=== PATIENT | female | born 1945 | race Caucasian/White ===

== ENCOUNTER 2018-05-02 14:19 | Inpatient (IN) | payer MEDICARE, OTHER ==
[~2018-05-02] VITALS: Ht 167.6 cm; Wt 80.3 kg
[2018-05-02] MEDS ORDERED: ACETAMINOPHEN 325 MG TABLET PO PRN (17:45)
[2018-05-02] MEDS: HYDROCODONE/ACETAMINOPHEN 5-325 MG TABLET PO PRN (19:18)
[2018-05-02] MEDS ORDERED: LISINOPRIL 20 MG TABLET PO SCH (21:00)
[2018-05-02] MEDS: SENNA 187 MG TABLET PO SCH (21:30)
[2018-05-02] MEDS: DOCUSATE SODIUM 250 MG CAPSULE PO SCH (21:30)
[2018-05-02] MEDS: ATORVASTATIN CALCIUM 20 MG TABLET PO SCH (21:30)
[2018-05-02] MEDS: ASPIRIN 81 MG CHEWABLE TABLET PO SCH (21:30)
[2018-05-02] MEDS: TEMAZEPAM 15 MG CAPSULE PO SCH (21:31)
[2018-05-02] MEDS: GABAPENTIN 300 MG CAPSULE PO SCH (21:31)
[2018-05-02] MEDS: OxyCODONE HCL/ACETAMINOPHEN 5-325 MG TABLET PO PRN (21:58)
[2018-05-02 22:32] VITALS: BP 146/86
[2018-05-02 23:48] LABS: APPEARANCE,URINE CLEAR (CLEAR); BILIRUBIN,URINE NEGATIVE (NEGATIVE); GLUCOSE, URINE (UA) NEGATIVE (NEGATIVE); KETONES,URINE NEGATIVE (NEGATIVE); LEUKOCYTE ESTERASE ,URINE NEGATIVE (NEGATIVE); NITRATE,URINE NEGATIVE (NEGATIVE); OCCULT BLOOD,URINE NEGATIVE (NEGATIVE); PH,URINE 7.5 (5.0-8.0); PROTEIN,URINE NEGATIVE (NEGATIVE); UROBILINOGEN,URINE 0.2 mg/dL (<=1.0)
[2018-05-03 00:23] LABS: BACTERIA,URINE Rare /HPF (None Seen); RBC,URINE 0-2 /HPF (0-2); SQUAMOUS EPITHELIAL CELL,UR Few /LPF (None Seen); WBC,URINE 0-2 /HPF (0-5)
[2018-05-03 03:08] VITALS: BP 141/83
[2018-05-03] MEDS: OxyCODONE HCL/ACETAMINOPHEN 5-325 MG TABLET PO PRN ×4 (03:08→17:15)
[2018-05-03] MEDS: DOCUSATE SODIUM 283 MG/5 ML MINI-ENEMA PR PRN (05:39)
[2018-05-03 07:03] LABS: BASOPHILS % (AUTO) 0.9 % (0.0-2.0); EOSINOPHILS % (AUTO) 3.2 % (1.0-6.0); HEMATOCRIT 32.6 % (36-46); HEMOGLOBIN 11.4 g/dL (12.0-16.0); LYMPHOCYTES # (AUTO) 1.8 K/uL (1.0-4.8); LYMPHOCYTES % (AUTO) 24.8 % (22.0-44.0); MEAN CORPUSCULAR HEMOGLOBIN 33.7 pg (26.0-34.0); MEAN CORPUSCULAR HGB CONC 34.9 G/dL (31.0-37.0); MEAN CORPUSCULAR VOLUME 97 fL (80-100); MONOCYTES # (AUTO) 0.7 K/uL (0.1-1.0); MONOCYTES % (AUTO) 9.1 % (2.0-9.0); NEUTROPHILS # (AUTO) 4.4 K/uL (1.8-7.7); PLATELET COUNT (AUTO) 225 K/uL (150-450); RED BLOOD CELL COUNT(AUTO) 3.38 MIL/uL (4.00-5.20); RED CELL DISTRIBUTION WIDTH 13.2 % (11.5-14.5)
[2018-05-03 07:39] LABS: ALBUMIN 3.1 g/dL (3.4-5.0); BILIRUBIN,TOTAL 0.6 mg/dL (0.1-1.0); CALCIUM, TOTAL 8.9 mg/dL (8.8-10.5); POTASSIUM 4.2 mmol/L (3.5-5.1); TOTAL PROTEIN, SERUM 6.4 g/dL (6.4-8.2)
[2018-05-03 08:10] VITALS: BP 129/81
[2018-05-03] MEDS: METOPROLOL SUCCINATE 50 MG ER TABLET PO SCH (08:13)
[2018-05-03] MEDS: LISINOPRIL 20 MG TABLET PO SCH (08:13)
[2018-05-03] MEDS: BuPROPion HCL XL 150 MG ER TABLET PO SCH (08:13)
[2018-05-03] MEDS: GLUCOSAMINE HCL/CHONDROITIN 500-400 MG TABLET PO SCH (08:14)
[2018-05-03] MEDS: BREXPIPRAZOLE 1 MG TABLET PO SCH (08:14)
[2018-05-03] MEDS: CLOPIDOGREL BISULFATE 75 MG TABLET PO SCH (08:14)
[2018-05-03] MEDS: DIAZEPAM 5 MG TABLET PO SCH (08:14)
[2018-05-03] MEDS: DOCUSATE SODIUM 250 MG CAPSULE PO SCH ×2 (08:14→20:52)
[2018-05-03] MEDS: DULoxetine HCL 20 MG CAPSULE PO SCH (08:14)
[2018-05-03] MEDS: HYDROCHLOROTHIAZIDE 25 MG TABLET PO SCH (08:14)
[2018-05-03] MEDS: GABAPENTIN 300 MG CAPSULE PO SCH ×3 (08:14→20:52)
[2018-05-03] MEDS: ASPIRIN 81 MG CHEWABLE TABLET PO SCH ×2 (08:14→20:53)
[2018-05-03] MEDS: CALCIUM CARBONATE 648 MG TABLET PO SCH (08:14)
[2018-05-03] MEDS: CHOLECALCIFEROL (VIT D3) 5,000 UNITS CAPSULE PO SCH (08:14)
[2018-05-03] MEDS: MULTIVITAMINS WITH MINERALS, THERAPEUTIC TABLET PO SCH (08:14)
[2018-05-03] MEDS ORDERED: OMEGA-3/DHA/EPA/FISH OIL 500 MG CAPSULE PO SCH (09:00)
[2018-05-03] MEDS: LUBIPROSTONE 24 MCG CAPSULE PO SCH ×2 (14:20→20:53)
[2018-05-03 15:37] VITALS: BP 123/85
[2018-05-03] MEDS: SENNA 187 MG TABLET PO SCH (20:52)
[2018-05-03] MEDS: ATORVASTATIN CALCIUM 20 MG TABLET PO SCH (20:52)
[2018-05-03] MEDS: TEMAZEPAM 15 MG CAPSULE PO SCH (20:52)
[2018-05-03] MEDS: TRIMETHOPRIM 100 MG TABLET PO SCH (20:53)
[2018-05-04 02:32] VITALS: BP 127/88
[2018-05-04] MEDS: OxyCODONE HCL/ACETAMINOPHEN 5-325 MG TABLET PO PRN ×4 (02:32→20:22)
[2018-05-04 07:22] VITALS: BP 127/79
[2018-05-04] MEDS: LUBIPROSTONE 24 MCG CAPSULE PO SCH ×2 (08:13→20:19)
[2018-05-04] MEDS: GLUCOSAMINE HCL/CHONDROITIN 500-400 MG TABLET PO SCH (08:14)
[2018-05-04] MEDS: CALCIUM CARBONATE 648 MG TABLET PO SCH ×2 (08:14→08:22)
[2018-05-04] MEDS: BREXPIPRAZOLE 1 MG TABLET PO SCH (08:14)
[2018-05-04] MEDS: CHOLECALCIFEROL (VIT D3) 5,000 UNITS CAPSULE PO SCH (08:14)
[2018-05-04] MEDS: ASPIRIN 81 MG CHEWABLE TABLET PO SCH ×2 (08:14→20:20)
[2018-05-04] MEDS: LISINOPRIL 20 MG TABLET PO SCH (08:14)
[2018-05-04] MEDS: DOCUSATE SODIUM 250 MG CAPSULE PO SCH ×2 (08:15→20:28)
[2018-05-04] MEDS: MULTIVITAMINS WITH MINERALS, THERAPEUTIC TABLET PO SCH (08:15)
[2018-05-04] MEDS: BuPROPion HCL XL 150 MG ER TABLET PO SCH (08:15)
[2018-05-04] MEDS: GABAPENTIN 300 MG CAPSULE PO SCH ×3 (08:15→20:20)
[2018-05-04] MEDS: DIAZEPAM 5 MG TABLET PO SCH (08:15)
[2018-05-04] MEDS: HYDROCHLOROTHIAZIDE 25 MG TABLET PO SCH (08:15)
[2018-05-04] MEDS: METOPROLOL SUCCINATE 50 MG ER TABLET PO SCH (08:15)
[2018-05-04] MEDS: CLOPIDOGREL BISULFATE 75 MG TABLET PO SCH (08:15)
[2018-05-04] MEDS: DULoxetine HCL 20 MG CAPSULE PO SCH (08:16)
[2018-05-04] MEDS ORDERED: SCOPOLAMINE HYDROBROMIDE 1.5 MG PATCH TD SCH (09:00)
[2018-05-04 15:26] VITALS: BP 117/78
[2018-05-04] MEDS: HYDROCODONE/ACETAMINOPHEN 5-325 MG TABLET PO PRN ×2 (16:29→22:30)
[2018-05-04] MEDS: TRIMETHOPRIM 100 MG TABLET PO SCH (20:19)
[2018-05-04] MEDS: SENNA 187 MG TABLET PO SCH (20:20)
[2018-05-04] MEDS: TEMAZEPAM 15 MG CAPSULE PO SCH (20:20)
[2018-05-04] MEDS: ATORVASTATIN CALCIUM 20 MG TABLET PO SCH (20:20)
[2018-05-05 01:38] VITALS: BP 111/78
[2018-05-05] MEDS: OxyCODONE HCL/ACETAMINOPHEN 5-325 MG TABLET PO PRN ×5 (02:01→22:26)
[2018-05-05 08:01] VITALS: BP 130/78
[2018-05-05] MEDS: DIAZEPAM 5 MG TABLET PO SCH (08:57)
[2018-05-05] MEDS: CLOPIDOGREL BISULFATE 75 MG TABLET PO SCH (08:57)
[2018-05-05] MEDS: ASPIRIN 81 MG CHEWABLE TABLET PO SCH ×2 (08:57→20:51)
[2018-05-05] MEDS: MULTIVITAMINS WITH MINERALS, THERAPEUTIC TABLET PO SCH (08:57)
[2018-05-05] MEDS: GABAPENTIN 300 MG CAPSULE PO SCH ×3 (08:57→20:51)
[2018-05-05] MEDS: BuPROPion HCL XL 150 MG ER TABLET PO SCH (08:57)
[2018-05-05] MEDS: CHOLECALCIFEROL (VIT D3) 5,000 UNITS CAPSULE PO SCH (08:57)
[2018-05-05] MEDS: LUBIPROSTONE 24 MCG CAPSULE PO SCH ×2 (08:57→20:51)
[2018-05-05] MEDS: GLUCOSAMINE HCL/CHONDROITIN 500-400 MG TABLET PO SCH (08:57)
[2018-05-05] MEDS: BREXPIPRAZOLE 1 MG TABLET PO SCH (08:57)
[2018-05-05] MEDS: METOPROLOL SUCCINATE 50 MG ER TABLET PO SCH (08:57)
[2018-05-05] MEDS: DOCUSATE SODIUM 250 MG CAPSULE PO SCH ×2 (08:57→20:51)
[2018-05-05] MEDS: DULoxetine HCL 20 MG CAPSULE PO SCH (08:58)
[2018-05-05] MEDS: HYDROCHLOROTHIAZIDE 25 MG TABLET PO SCH (08:58)
[2018-05-05] MEDS: LISINOPRIL 20 MG TABLET PO SCH (08:58)
[2018-05-05] MEDS: CALCIUM CARBONATE 648 MG TABLET PO SCH (08:58)
[2018-05-05 16:01] VITALS: BP 130/74
[2018-05-05] MEDS: ATORVASTATIN CALCIUM 20 MG TABLET PO SCH (20:51)
[2018-05-05] MEDS: TRIMETHOPRIM 100 MG TABLET PO SCH (20:52)
[2018-05-05] MEDS: SENNA 187 MG TABLET PO SCH (20:52)
[2018-05-05] MEDS: TEMAZEPAM 15 MG CAPSULE PO SCH (20:52)
[2018-05-06 00:54] VITALS: BP 142/76
[2018-05-06] MEDS: HYDROCODONE/ACETAMINOPHEN 5-325 MG TABLET PO PRN ×2 (02:27→09:11)
[2018-05-06] MEDS: OxyCODONE HCL/ACETAMINOPHEN 5-325 MG TABLET PO PRN ×3 (06:37→23:56)
[2018-05-06 08:25] VITALS: BP 134/86
[2018-05-06] MEDS: GABAPENTIN 300 MG CAPSULE PO SCH ×3 (09:09→20:32)
[2018-05-06] MEDS: BREXPIPRAZOLE 1 MG TABLET PO SCH (09:09)
[2018-05-06] MEDS: GLUCOSAMINE HCL/CHONDROITIN 500-400 MG TABLET PO SCH (09:09)
[2018-05-06] MEDS: CHOLECALCIFEROL (VIT D3) 5,000 UNITS CAPSULE PO SCH (09:09)
[2018-05-06] MEDS: CALCIUM CARBONATE 648 MG TABLET PO SCH (09:09)
[2018-05-06] MEDS: LUBIPROSTONE 24 MCG CAPSULE PO SCH ×2 (09:09→20:32)
[2018-05-06] MEDS: HYDROCHLOROTHIAZIDE 25 MG TABLET PO SCH (09:10)
[2018-05-06] MEDS: CLOPIDOGREL BISULFATE 75 MG TABLET PO SCH (09:10)
[2018-05-06] MEDS: DULoxetine HCL 20 MG CAPSULE PO SCH (09:10)
[2018-05-06] MEDS: DOCUSATE SODIUM 250 MG CAPSULE PO SCH ×2 (09:10→20:32)
[2018-05-06] MEDS: ASPIRIN 81 MG CHEWABLE TABLET PO SCH ×2 (09:10→20:32)
[2018-05-06] MEDS: LISINOPRIL 20 MG TABLET PO SCH (09:10)
[2018-05-06] MEDS: METOPROLOL SUCCINATE 50 MG ER TABLET PO SCH (09:10)
[2018-05-06] MEDS: MULTIVITAMINS WITH MINERALS, THERAPEUTIC TABLET PO SCH (09:10)
[2018-05-06] MEDS: DIAZEPAM 5 MG TABLET PO SCH (09:10)
[2018-05-06] MEDS: BuPROPion HCL XL 150 MG ER TABLET PO SCH (09:10)
[2018-05-06] MEDS ORDERED: DiphenhydrAMINE HCL 25 MG CAPSULE PO PRN (12:30)
[2018-05-06] MEDS: ONDANSETRON HCL 4 MG TABLET PO PRN (13:54)
[2018-05-06 15:58] VITALS: BP 141/77
[2018-05-06 20:31] VITALS: BP 121/76
[2018-05-06] MEDS: TEMAZEPAM 15 MG CAPSULE PO SCH (20:32)
[2018-05-06] MEDS: SENNA 187 MG TABLET PO SCH (20:32)
[2018-05-06] MEDS: ATORVASTATIN CALCIUM 20 MG TABLET PO SCH (20:32)
[2018-05-06] MEDS: TRIMETHOPRIM 100 MG TABLET PO SCH (20:32)
[2018-05-06] MEDS ORDERED: METO-558 PO (22:29)
[2018-05-06] MEDS ORDERED: CLOP75 PO (22:32)
[2018-05-06] MEDS ORDERED: BREX1TAB PO (22:32)
[2018-05-06] MEDS ORDERED: PRAS25CA9 PO (22:39)
[2018-05-06] MEDS ORDERED: ATOR20TA86 PO (22:39)
[2018-05-06] MEDS ORDERED: CALC-1038 PO (22:39)
[2018-05-06] MEDS ORDERED: DULO20CA30 PO (22:39)
[2018-05-06] MEDS ORDERED: DIAZ2TAB PO (22:39)
[2018-05-06] MEDS ORDERED: BUPR-93 PO (22:39)
[2018-05-06] MEDS ORDERED: OMEG-112 PO (22:51)
[2018-05-06] MEDS ORDERED: TRIM100 PO (22:51)
[2018-05-06] MEDS ORDERED: ASPI-1182 PO (22:51)
[2018-05-06] MEDS ORDERED: TEMA15CA PO (22:51)
[2018-05-06] MEDS ORDERED: GABA-531 PO (22:51)
[2018-05-06] MEDS ORDERED: LISI-662 PO (22:51)
[2018-05-06] MEDS ORDERED: DIAZ5 PO (22:51)
[2018-05-06] MEDS ORDERED: CHOL50004 PO (22:51)
[2018-05-06] MEDS ORDERED: KRIL500C PO (22:51)
[2018-05-06 23:56] VITALS: BP 117/76
[2018-05-07] MEDS: HYDROCODONE/ACETAMINOPHEN 5-325 MG TABLET PO PRN ×2 (03:26→11:47)
[2018-05-07 07:47] VITALS: BP 125/70
[2018-05-07] MEDS: OxyCODONE HCL/ACETAMINOPHEN 5-325 MG TABLET PO PRN ×3 (09:07→22:32)
[2018-05-07] MEDS: BREXPIPRAZOLE 1 MG TABLET PO SCH (09:36)
[2018-05-07] MEDS: CALCIUM CARBONATE 648 MG TABLET PO SCH (09:37)
[2018-05-07] MEDS: ASPIRIN 81 MG CHEWABLE TABLET PO SCH ×2 (09:37→21:07)
[2018-05-07] MEDS: GLUCOSAMINE HCL/CHONDROITIN 500-400 MG TABLET PO SCH (09:37)
[2018-05-07] MEDS: CLOPIDOGREL BISULFATE 75 MG TABLET PO SCH (09:37)
[2018-05-07] MEDS: DULoxetine HCL 20 MG CAPSULE PO SCH (09:37)
[2018-05-07] MEDS: LUBIPROSTONE 24 MCG CAPSULE PO SCH ×2 (09:38→21:08)
[2018-05-07] MEDS: GABAPENTIN 300 MG CAPSULE PO SCH ×3 (09:38→21:07)
[2018-05-07] MEDS: BuPROPion HCL XL 150 MG ER TABLET PO SCH (09:38)
[2018-05-07] MEDS: DOCUSATE SODIUM 250 MG CAPSULE PO SCH ×2 (09:38→21:07)
[2018-05-07] MEDS: METOPROLOL SUCCINATE 50 MG ER TABLET PO SCH (09:39)
[2018-05-07] MEDS: DIAZEPAM 5 MG TABLET PO SCH (09:39)
[2018-05-07] MEDS: LISINOPRIL 20 MG TABLET PO SCH (09:39)
[2018-05-07] MEDS: MULTIVITAMINS WITH MINERALS, THERAPEUTIC TABLET PO SCH (09:39)
[2018-05-07] MEDS: CHOLECALCIFEROL (VIT D3) 5,000 UNITS CAPSULE PO SCH (09:39)
[2018-05-07] MEDS: HYDROCHLOROTHIAZIDE 25 MG TABLET PO SCH (09:40)
[2018-05-07 15:09] VITALS: BP 119/81
[2018-05-07] MEDS: ATORVASTATIN CALCIUM 20 MG TABLET PO SCH (21:07)
[2018-05-07] MEDS: SENNA 187 MG TABLET PO SCH (21:07)
[2018-05-07] MEDS: TEMAZEPAM 15 MG CAPSULE PO SCH (21:07)
[2018-05-07] MEDS: TRIMETHOPRIM 100 MG TABLET PO SCH (21:08)
[2018-05-07] MEDS: ONDANSETRON HCL 4 MG TABLET PO PRN (23:58)
[2018-05-08 00:05] VITALS: BP 130/85
[2018-05-08] MEDS: HYDROCODONE/ACETAMINOPHEN 5-325 MG TABLET PO PRN ×3 (02:01→10:45)
[2018-05-08 07:20] VITALS: BP 138/77
[2018-05-08] MEDS: DOCUSATE SODIUM 250 MG CAPSULE PO SCH ×2 (08:42→20:16)
[2018-05-08] MEDS: DIAZEPAM 5 MG TABLET PO SCH (08:42)
[2018-05-08] MEDS: BuPROPion HCL XL 150 MG ER TABLET PO SCH (08:42)
[2018-05-08] MEDS: MULTIVITAMINS WITH MINERALS, THERAPEUTIC TABLET PO SCH (08:42)
[2018-05-08] MEDS: CLOPIDOGREL BISULFATE 75 MG TABLET PO SCH (08:42)
[2018-05-08] MEDS: OxyCODONE HCL/ACETAMINOPHEN 5-325 MG TABLET PO PRN ×2 (08:42→15:21)
[2018-05-08] MEDS: ASPIRIN 81 MG CHEWABLE TABLET PO SCH ×2 (08:42→20:16)
[2018-05-08] MEDS: GABAPENTIN 300 MG CAPSULE PO SCH ×3 (08:43→20:15)
[2018-05-08] MEDS: METOPROLOL SUCCINATE 50 MG ER TABLET PO SCH (08:43)
[2018-05-08] MEDS: LUBIPROSTONE 24 MCG CAPSULE PO SCH ×2 (08:44→20:15)
[2018-05-08] MEDS: CALCIUM CARBONATE 648 MG TABLET PO SCH (08:44)
[2018-05-08] MEDS: DULoxetine HCL 20 MG CAPSULE PO SCH (08:44)
[2018-05-08] MEDS: GLUCOSAMINE HCL/CHONDROITIN 500-400 MG TABLET PO SCH (08:44)
[2018-05-08] MEDS: BREXPIPRAZOLE 1 MG TABLET PO SCH (08:44)
[2018-05-08] MEDS: LISINOPRIL 20 MG TABLET PO SCH (08:45)
[2018-05-08] MEDS: HYDROCHLOROTHIAZIDE 25 MG TABLET PO SCH (08:45)
[2018-05-08] MEDS: CHOLECALCIFEROL (VIT D3) 5,000 UNITS CAPSULE PO SCH (08:45)
[2018-05-08] MEDS ORDERED: OxyCODONE HCL 20 MG ER TABLET PO ONE (13:00)
[2018-05-08 13:09] LABS: APPEARANCE,URINE CLOUDY (CLEAR); BILIRUBIN,URINE NEGATIVE (NEGATIVE); GLUCOSE, URINE (UA) NEGATIVE (NEGATIVE); KETONES,URINE NEGATIVE (NEGATIVE); LEUKOCYTE ESTERASE ,URINE LARGE (NEGATIVE); NITRATE,URINE POSITIVE (NEGATIVE); OCCULT BLOOD,URINE SMALL (NEGATIVE); PROTEIN,URINE NEGATIVE (NEGATIVE)
[2018-05-08 13:19] LABS: BACTERIA,URINE Many /HPF (None Seen); WBC,URINE 51-100 /HPF (0-5)
[2018-05-08 13:22] LABS: RBC,URINE 0-2 /HPF (0-2); SQUAMOUS EPITHELIAL CELL,UR Few /LPF (None Seen)
[2018-05-08 15:21] VITALS: BP 109/74
[2018-05-08] MEDS: CIPROFLOXACIN HCL 250 MG TABLET PO SCH ×2 (15:21→20:15)
[2018-05-08 15:51] VITALS: BP 109/74
[2018-05-08] MEDS: SENNA 187 MG TABLET PO SCH (20:15)
[2018-05-08] MEDS: TRIMETHOPRIM 100 MG TABLET PO SCH (20:15)
[2018-05-08] MEDS: OxyCODONE HCL 20 MG ER TABLET PO SCH (20:15)
[2018-05-08] MEDS: ATORVASTATIN CALCIUM 20 MG TABLET PO SCH (20:15)
[2018-05-08] MEDS: TEMAZEPAM 15 MG CAPSULE PO SCH (20:16)
[2018-05-08] MEDS: ONDANSETRON HCL 4 MG TABLET PO PRN (21:26)
[2018-05-09 00:30] VITALS: BP 126/76
[2018-05-09] MEDS: OxyCODONE HCL/ACETAMINOPHEN 5-325 MG TABLET PO PRN ×2 (02:41→22:33)
[2018-05-09] MEDS: CIPROFLOXACIN HCL 250 MG TABLET PO SCH ×2 (07:55→20:28)
[2018-05-09] MEDS: MULTIVITAMINS WITH MINERALS, THERAPEUTIC TABLET PO SCH (07:55)
[2018-05-09] MEDS: CLOPIDOGREL BISULFATE 75 MG TABLET PO SCH (07:56)
[2018-05-09] MEDS: CALCIUM CARBONATE 648 MG TABLET PO SCH (07:56)
[2018-05-09] MEDS: HYDROCHLOROTHIAZIDE 25 MG TABLET PO SCH (07:56)
[2018-05-09] MEDS: LISINOPRIL 20 MG TABLET PO SCH (07:56)
[2018-05-09] MEDS: BREXPIPRAZOLE 1 MG TABLET PO SCH (07:56)
[2018-05-09] MEDS: LUBIPROSTONE 24 MCG CAPSULE PO SCH ×2 (07:56→20:29)
[2018-05-09 07:57] VITALS: BP 108/67
[2018-05-09] MEDS: DULoxetine HCL 20 MG CAPSULE PO SCH (07:57)
[2018-05-09] MEDS: BuPROPion HCL XL 150 MG ER TABLET PO SCH (07:57)
[2018-05-09] MEDS: GLUCOSAMINE HCL/CHONDROITIN 500-400 MG TABLET PO SCH (07:57)
[2018-05-09] MEDS: ASPIRIN 81 MG CHEWABLE TABLET PO SCH ×2 (07:57→20:29)
[2018-05-09] MEDS: METOPROLOL SUCCINATE 50 MG ER TABLET PO SCH (07:57)
[2018-05-09] MEDS: CHOLECALCIFEROL (VIT D3) 5,000 UNITS CAPSULE PO SCH (07:58)
[2018-05-09] MEDS: DOCUSATE SODIUM 250 MG CAPSULE PO SCH ×2 (07:58→20:28)
[2018-05-09] MEDS: GABAPENTIN 300 MG CAPSULE PO SCH ×3 (07:58→20:29)
[2018-05-09] MEDS: DIAZEPAM 5 MG TABLET PO SCH (07:58)
[2018-05-09] MEDS: OxyCODONE HCL 20 MG ER TABLET PO SCH ×2 (08:01→20:29)
[2018-05-09] MEDS: HYDROCODONE/ACETAMINOPHEN 5-325 MG TABLET PO PRN ×2 (11:08→16:09)
[2018-05-09 15:15] VITALS: BP 130/75
[2018-05-09] MEDS: SENNA 187 MG TABLET PO SCH (20:28)
[2018-05-09] MEDS: TEMAZEPAM 15 MG CAPSULE PO SCH (20:28)
[2018-05-09] MEDS: ATORVASTATIN CALCIUM 20 MG TABLET PO SCH (20:29)
[2018-05-09] MEDS: TRIMETHOPRIM 100 MG TABLET PO SCH (20:29)
[2018-05-09 20:30] VITALS: BP 107/67
[2018-05-10 01:00] VITALS: BP 104/72
[2018-05-10] MEDS: HYDROCODONE/ACETAMINOPHEN 5-325 MG TABLET PO PRN ×2 (02:13→21:48)
[2018-05-10 07:29] VITALS: BP 117/66
[2018-05-10] MEDS: OxyCODONE HCL 20 MG ER TABLET PO SCH ×2 (07:29→20:17)
[2018-05-10] MEDS: HYDROCHLOROTHIAZIDE 25 MG TABLET PO SCH (09:21)
[2018-05-10] MEDS: LISINOPRIL 20 MG TABLET PO SCH (09:21)
[2018-05-10] MEDS: BREXPIPRAZOLE 1 MG TABLET PO SCH (09:21)
[2018-05-10] MEDS: DOCUSATE SODIUM 250 MG CAPSULE PO SCH ×2 (09:21→20:12)
[2018-05-10] MEDS: GLUCOSAMINE HCL/CHONDROITIN 500-400 MG TABLET PO SCH (09:21)
[2018-05-10] MEDS: ASPIRIN 81 MG CHEWABLE TABLET PO SCH ×2 (09:21→20:14)
[2018-05-10] MEDS: BuPROPion HCL XL 150 MG ER TABLET PO SCH (09:22)
[2018-05-10] MEDS: CHOLECALCIFEROL (VIT D3) 5,000 UNITS CAPSULE PO SCH (09:22)
[2018-05-10] MEDS: GABAPENTIN 300 MG CAPSULE PO SCH ×3 (09:22→20:12)
[2018-05-10] MEDS: DULoxetine HCL 20 MG CAPSULE PO SCH (09:23)
[2018-05-10] MEDS: LUBIPROSTONE 24 MCG CAPSULE PO SCH ×2 (09:23→20:11)
[2018-05-10] MEDS: CALCIUM CARBONATE 648 MG TABLET PO SCH (09:23)
[2018-05-10] MEDS: CIPROFLOXACIN HCL 250 MG TABLET PO SCH ×2 (09:23→20:12)
[2018-05-10] MEDS: CLOPIDOGREL BISULFATE 75 MG TABLET PO SCH (09:23)
[2018-05-10] MEDS: MULTIVITAMINS WITH MINERALS, THERAPEUTIC TABLET PO SCH (09:23)
[2018-05-10] MEDS: DIAZEPAM 5 MG TABLET PO SCH (09:23)
[2018-05-10] MEDS: METOPROLOL SUCCINATE 50 MG ER TABLET PO SCH (09:23)
[2018-05-10] MEDS: ONDANSETRON HCL 4 MG TABLET PO PRN (10:18)
[2018-05-10] MEDS: OxyCODONE HCL/ACETAMINOPHEN 5-325 MG TABLET PO PRN ×3 (12:11→16:19)
[2018-05-10 15:45] VITALS: BP 102/68
[2018-05-10] MEDS: ATORVASTATIN CALCIUM 20 MG TABLET PO SCH (20:12)
[2018-05-10] MEDS: SENNA 187 MG TABLET PO SCH (20:12)
[2018-05-10] MEDS: TRIMETHOPRIM 100 MG TABLET PO SCH (20:12)
[2018-05-10] MEDS: TEMAZEPAM 15 MG CAPSULE PO SCH (20:13)
[2018-05-11 01:47] VITALS: BP 120/73
[2018-05-11] MEDS: HYDROCODONE/ACETAMINOPHEN 5-325 MG TABLET PO PRN ×3 (03:33→15:21)
[2018-05-11] MEDS: DOCUSATE SODIUM 283 MG/5 ML MINI-ENEMA PR PRN (05:19)
[2018-05-11 07:10] VITALS: BP 111/67
[2018-05-11] MEDS: DIAZEPAM 5 MG TABLET PO SCH (08:32)
[2018-05-11] MEDS: DULoxetine HCL 20 MG CAPSULE PO SCH (08:32)
[2018-05-11] MEDS: LUBIPROSTONE 24 MCG CAPSULE PO SCH ×2 (08:32→20:42)
[2018-05-11] MEDS: HYDROCHLOROTHIAZIDE 25 MG TABLET PO SCH (08:32)
[2018-05-11] MEDS: CHOLECALCIFEROL (VIT D3) 5,000 UNITS CAPSULE PO SCH (08:32)
[2018-05-11] MEDS: ASPIRIN 81 MG CHEWABLE TABLET PO SCH ×2 (08:33→20:42)
[2018-05-11] MEDS: OxyCODONE HCL 20 MG ER TABLET PO SCH (08:33)
[2018-05-11] MEDS: LISINOPRIL 20 MG TABLET PO SCH (08:33)
[2018-05-11] MEDS: METOPROLOL SUCCINATE 50 MG ER TABLET PO SCH (08:33)
[2018-05-11] MEDS: GABAPENTIN 300 MG CAPSULE PO SCH ×3 (08:33→20:41)
[2018-05-11] MEDS: BuPROPion HCL XL 150 MG ER TABLET PO SCH (08:34)
[2018-05-11] MEDS: CALCIUM CARBONATE 648 MG TABLET PO SCH (08:34)
[2018-05-11] MEDS: GLUCOSAMINE HCL/CHONDROITIN 500-400 MG TABLET PO SCH (08:34)
[2018-05-11] MEDS: MULTIVITAMINS WITH MINERALS, THERAPEUTIC TABLET PO SCH (08:34)
[2018-05-11] MEDS: BREXPIPRAZOLE 1 MG TABLET PO SCH (08:34)
[2018-05-11] MEDS: CLOPIDOGREL BISULFATE 75 MG TABLET PO SCH (08:34)
[2018-05-11] MEDS: CIPROFLOXACIN HCL 250 MG TABLET PO SCH ×2 (08:34→20:41)
[2018-05-11] MEDS: DOCUSATE SODIUM 250 MG CAPSULE PO SCH ×2 (08:34→20:40)
[2018-05-11 15:21] VITALS: BP 110/78
[2018-05-11] MEDS: TEMAZEPAM 15 MG CAPSULE PO SCH (20:41)
[2018-05-11] MEDS: ATORVASTATIN CALCIUM 20 MG TABLET PO SCH (20:41)
[2018-05-11] MEDS: TRIMETHOPRIM 100 MG TABLET PO SCH (20:41)
[2018-05-11] MEDS: SENNA 187 MG TABLET PO SCH (20:41)
[2018-05-11] MEDS ORDERED: CLOP75 PO (22:30)
[2018-05-11] MEDS ORDERED: CIP250 PO (22:30)
[2018-05-11] MEDS ORDERED: OS500 PO (22:30)
[2018-05-12] VITALS: BP 136/83
[2018-05-12] MEDS: HYDROCODONE/ACETAMINOPHEN 5-325 MG TABLET PO PRN ×3 (04:04→17:07)
[2018-05-12] MEDS ORDERED: LUBI24CA2 PO (07:31)
[2018-05-12] MEDS ORDERED: DOCU250C91 PO (07:37)
[2018-05-12] MEDS ORDERED: GLUC-29 PO (07:37)
[2018-05-12 07:38] VITALS: BP 129/78
[2018-05-12] MEDS ORDERED: HYDR25TA PO (07:43)
[2018-05-12] MEDS ORDERED: BREX1TAB PO (07:43)
[2018-05-12] MEDS ORDERED: MULT-1239 PO (07:44)
[2018-05-12] MEDS ORDERED: PERCT PO (07:56)
[2018-05-12] MEDS ORDERED: HYDR-309 PO (07:56)
[2018-05-12] MEDS: ASPIRIN 81 MG CHEWABLE TABLET PO SCH ×2 (09:28→20:47)
[2018-05-12] MEDS: CLOPIDOGREL BISULFATE 75 MG TABLET PO SCH (09:28)
[2018-05-12] MEDS: DOCUSATE SODIUM 250 MG CAPSULE PO SCH ×2 (09:28→20:48)
[2018-05-12] MEDS: OxyCODONE HCL/ACETAMINOPHEN 5-325 MG TABLET PO PRN ×3 (09:28→12:53)
[2018-05-12] MEDS: MULTIVITAMINS WITH MINERALS, THERAPEUTIC TABLET PO SCH (09:28)
[2018-05-12] MEDS: METOPROLOL SUCCINATE 50 MG ER TABLET PO SCH (09:28)
[2018-05-12] MEDS: DULoxetine HCL 20 MG CAPSULE PO SCH (09:30)
[2018-05-12] MEDS: ONDANSETRON HCL 4 MG TABLET PO PRN (09:30)
[2018-05-12] MEDS: CIPROFLOXACIN HCL 250 MG TABLET PO SCH ×2 (09:31→20:48)
[2018-05-12] MEDS: CHOLECALCIFEROL (VIT D3) 5,000 UNITS CAPSULE PO SCH (09:31)
[2018-05-12] MEDS: BREXPIPRAZOLE 1 MG TABLET PO SCH (09:31)
[2018-05-12] MEDS: HYDROCHLOROTHIAZIDE 25 MG TABLET PO SCH (09:31)
[2018-05-12] MEDS: CALCIUM CARBONATE 648 MG TABLET PO SCH (09:31)
[2018-05-12] MEDS: LISINOPRIL 20 MG TABLET PO SCH (09:32)
[2018-05-12] MEDS: LUBIPROSTONE 24 MCG CAPSULE PO SCH ×2 (09:32→21:16)
[2018-05-12] MEDS: GLUCOSAMINE HCL/CHONDROITIN 500-400 MG TABLET PO SCH (09:32)
[2018-05-12] MEDS: BuPROPion HCL XL 150 MG ER TABLET PO SCH (09:44)
[2018-05-12] MEDS: GABAPENTIN 300 MG CAPSULE PO SCH ×3 (09:44→20:48)
[2018-05-12] MEDS: DIAZEPAM 5 MG TABLET PO SCH (09:45)
[2018-05-12 15:57] VITALS: BP 94/57
[2018-05-12] MEDS: TRIMETHOPRIM 100 MG TABLET PO SCH (20:47)
[2018-05-12] MEDS: ATORVASTATIN CALCIUM 20 MG TABLET PO SCH (20:47)
[2018-05-12] MEDS: TEMAZEPAM 15 MG CAPSULE PO SCH (20:48)
[2018-05-12] MEDS: SENNA 187 MG TABLET PO SCH (20:48)
[2018-05-13 00:35] VITALS: BP 133/76
[2018-05-13] MEDS: HYDROCODONE/ACETAMINOPHEN 5-325 MG TABLET PO PRN ×2 (00:37→04:37)
[2018-05-13] MEDS ORDERED: LUBIPROSTONE 24 MCG CAPSULE PO SCH (07:30)
[2018-05-13 07:39] VITALS: BP 120/74
[2018-05-13] MEDS: OxyCODONE HCL/ACETAMINOPHEN 5-325 MG TABLET PO PRN (08:47)
[2018-05-13] MEDS: ASPIRIN 81 MG CHEWABLE TABLET PO SCH (08:49)
[2018-05-13] MEDS: CHOLECALCIFEROL (VIT D3) 5,000 UNITS CAPSULE PO SCH (08:49)
[2018-05-13] MEDS: GLUCOSAMINE HCL/CHONDROITIN 500-400 MG TABLET PO SCH (08:49)
[2018-05-13] MEDS: BREXPIPRAZOLE 1 MG TABLET PO SCH (08:50)
[2018-05-13] MEDS: CALCIUM CARBONATE 648 MG TABLET PO SCH (08:50)
[2018-05-13] MEDS: MULTIVITAMINS WITH MINERALS, THERAPEUTIC TABLET PO SCH (08:50)
[2018-05-13] MEDS: CLOPIDOGREL BISULFATE 75 MG TABLET PO SCH (08:50)
[2018-05-13] MEDS: LISINOPRIL 20 MG TABLET PO SCH (08:50)
[2018-05-13] MEDS: DOCUSATE SODIUM 250 MG CAPSULE PO SCH (08:51)
[2018-05-13] MEDS: DIAZEPAM 5 MG TABLET PO SCH (08:51)
[2018-05-13] MEDS: METOPROLOL SUCCINATE 50 MG ER TABLET PO SCH (08:51)
[2018-05-13] MEDS: HYDROCHLOROTHIAZIDE 25 MG TABLET PO SCH (08:52)
[2018-05-13] MEDS: CIPROFLOXACIN HCL 250 MG TABLET PO SCH (08:52)
[2018-05-13] MEDS: DULoxetine HCL 20 MG CAPSULE PO SCH (08:52)
[2018-05-13] MEDS: BuPROPion HCL XL 150 MG ER TABLET PO SCH (08:56)
[2018-05-13] MEDS: ONDANSETRON HCL 4 MG TABLET PO PRN (11:01)
[2018-05-13] MEDS: GABAPENTIN 300 MG CAPSULE PO SCH (11:02)
== END 2018-05-13 11:37 | disposition home health service (06) | DRG 554 ==
LOC: 2WR 17:00
DX: M17.12 Unilateral primary osteoarthritis, left knee (principal); E46 Unspecified protein-calorie malnutrition; N39.0 Urinary tract infection, site not specified; Z96.653 Presence of artificial knee joint, bilateral; I10 Essential (primary) hypertension; K59.03 Drug induced constipation; T40.2X5A Adverse effect of other opioids, initial encounter; G89.29 Other chronic pain; M54.9 Dorsalgia, unspecified; H91.91 Unspecified hearing loss, right ear; F32.9 Major depressive disorder, single episode, unspecified; F41.9 Anxiety disorder, unspecified; Z86.718 Personal history of other venous thrombosis and embolism; Z86.73 Personal history of transient ischemic attack (TIA), and cerebral infarction without residual deficits; Z98.2 Presence of cerebrospinal fluid drainage device; Z90.710 Acquired absence of both cervix and uterus; Z90.722 Acquired absence of ovaries, bilateral; Z90.79 Acquired absence of other genital organ(s); Z68.28 Body mass index [BMI] 28.0-28.9, adult; Y92.89 Other specified places as the place of occurrence of the external cause
CPT/HCPCS: 87081; 87086; 97110; 97116; 97150; 97162; 97166; 97530; 97535; 99366; Q0162